=== PATIENT | male | born 1975 | race Caucasian/White ===

== ENCOUNTER 2020-05-15 20:15 | Emergency (ER) | payer BC, OTHER ==
[2020-05-15] MEDS ORDERED: Sodium Chloride 0.9% 1,000 ML IV ONE ×2 (20:29→21:04)
[2020-05-15] MEDS ORDERED: Acetaminophen 500 MG Tab PO ONE (20:29)
[2020-05-15] MEDS ORDERED: Sodium Chloride 0.9% 10 ML Syringe FLUSH PRN (21:04)
[2020-05-15 21:25] LABS: ANION GAP 17.1 mmol/L (5-15); CHLORIDE,CL 97 mmol/L (98-107); SODIUM,NA 136 mmol/L (136-145)
[2020-05-15] MEDS ORDERED: Albuterol 0.083% 2.5 MG/3 ML Neb Soln NEB ONE (21:50)
[2020-05-15] MEDS ORDERED: Iopamidol 755 Mg/ML 100 ML Bottle IV ONE (22:49)
[2020-05-15] MEDS ORDERED: Sodium Chloride 0.9% 100 ML IV SCH (23:00)
--- NOTE | 2020-05-15 23:39 | EDM.PDOC ---
ED HPI GENERAL MEDICAL PROBLEM - General Chief Complaint: Respiratory Problem Stated Complaint: COVID +, N/V Time Seen by Provider: 05/15/20 20:20 Source of Information: Reports: Patient History Limitations: Reports: No Limitations - History of Present Illness INITIAL COMMENTS - FREE TEXT/NARRATIVE: 45-year-old male presents to the emergency room with complaints of shortness of breath, chronic cough and not feeling well. He tested positive for Covid last Sunday on May 09. He works at the [employer] in the winter and his department had an outbreak of Covid. He reports his cough and shortness of breath have progressively gotten worse over the week. He denies significant chills but feels like he has been spiking some low-grade temps. He denies any significant chest pain. No abdominal pain. No muscular aches. Onset: Gradual Onset Date: 05/09/20 Duration: Day(s):, Getting Worse Location: Reports: Chest Quality: Reports: Ache Severity: Moderate Improves with: Reports: Rest Worsens with: Reports: Other (Coughing) Context: Reports: Sick Contact Associated Symptoms: Reports: Cough, cough w sputum, Fever/Chills, Nausea/Vomiting, Shortness of Breath. Denies: Chest Pain, Diaphoresis - Related Data Allergies Allergy/AdvReac Type Severity Reaction Status Date / Time No Known Allergies Allergy Verified 05/15/20 20:36 Home Meds: Home Meds . [No Known Home Meds] 04/03/13 [History] Past Medical History Endocrine/Metabolic History: Reports: Obesity/BMI 30+ - Infectious Disease History Infectious Disease History: Reports: Novel Coronavirus Social & Family History - Family History Family Medical History: No Pertinent Family History - Tobacco Use Tobacco Use Status *Q: Never Tobacco User Second Hand Smoke Exposure: No - Caffeine Use Caffeine Use: Reports: Energy Drinks, Soda - Recreational Drug Use Recreational Drug Use: No ED ROS GENERAL - Review of Systems Review Of Systems: See Below Constitutional: Reports: Fever, Weakness, Fatigue HEENT: Reports: No Symptoms Respiratory: Reports: Shortness of Breath, Cough Cardiovascular: Denies: Chest Pain, Blood Pressure Problem, Lightheadedness, Palpitations, Syncope Endocrine: Reports: No Symptoms GI/Abdominal: Reports: Nausea, Vomiting : Reports: No Symptoms Musculoskeletal: Reports: No Symptoms Skin: Denies: Cyanosis Neurological: Reports: No Symptoms Psychiatric: Reports: No Symptoms Hematologic/Lymphatic: Reports: No Symptoms Immunologic: Reports: No Symptoms ED EXAM, GENERAL - Physical Exam Exam: See Below Exam Limited By: No Limitations General Appearance: Alert, WD/WN, Mild Distress, Obese Eye Exam: Bilateral Eye: EOMI, PERRL Ears: Hearing Grossly Normal Nose: Normal Inspection Throat/Mouth: Normal Inspection, Normal Oropharynx, Normal Voice, No Airway Compromise Head: Atraumatic, Normocephalic Neck: Normal Inspection, Supple, Non-Tender, Full Range of Motion Respiratory/Chest: Decreased Breath Sounds (Noted throughout laterally). No: Wheezing, Retractions, Splinting Cardiovascular: Regular Rate, Rhythm, No Murmur Peripheral Pulses: 2+: Carotid (L), Carotid (R) GI/Abdominal: Normal Bowel Sounds, Soft, Non-Tender, No Organomegaly Back Exam: Normal Inspection Extremities: Normal Inspection Neurological: Alert, Oriented, No Motor/Sensory Deficits Psychiatric: Normal Affect, Normal Mood Skin Exam: Warm, Dry, Intact, Normal Color, No Rash. No: Cyanosis Lymphatic: No Adenopathy Course - Vital Signs Last Recorded V/S: Last Vital Signs Temp 99.6 F 05/15/20 22:15 Pulse 93 05/15/20 22:15 Resp 24 H 05/15/20 21:47 BP 111/62 05/15/20 22:15 Pulse Ox 91 L 05/15/20 22:15 - Orders/Labs/Meds Orders: Active Orders 24 hr Category Date Time Status Blood Pressure Mgt: Sepsis [RC] Q15MX2 Care 05/15/20 21:06 Active Overnight Pulse Oximetry [RC] Click to Edit Care 05/15/20 21:06 Active Oxygen Therapy, ED [RC] STAT Care 05/15/20 21:05 Active RT Aerosol Therapy [RC] ASDIRECTED Care 05/15/20 21:51 Active Ang Chest [CT] Stat Exams 05/15/20 22:00 Ordered Sodium Chloride 0.9% [Normal Saline] 100 ml Med 05/15/20 23:00 Active IV ASDIRECTED Sodium Chloride 0.9% [Saline Flush] Med 05/15/20 21:04 Active 10 ml FLUSH Q8HR PRN Isolation [COMM] Routine Oth 05/15/20 20:28 Ordered Pulse Oximetry Continuous Monitoring [OM.PC] Routine Oth 05/15/20 21:04 Ordered Saline Lock Insert [OM.PC] Stat Oth 05/15/20 21:04 Ordered Severe Sepsis Onset Time [OM.PC] Stat Ot 05/15/20 21:04 Ordered Medication Orders Sodium Chloride (Normal Saline) 100 mls @ 200 mls/hr IV ASDIRECTED JAIME Last Admin: 05/15/20 22:55 Dose: 200 mls/hr Documented by: ZION Sodium Chloride (Sodium Chloride 0.9% 10 Ml Syringe) 10 ml FLUSH Q8HR PRN PRN Reason: keep vein open Labs: Laboratory Tests 05/15/20 05/15/20 05/15/20 Range/Units 21:00 21:00 21:00 WBC 5.41 (5.00-10.00) 10^3/uL RBC 5.64 (4.50-6.00) 10^6/uL Hgb 15.1 (13.0-17.0) g/dL Hct 45.7 (40.0-52.0) % MCV 81.0 L (82.0-92.0) fL MCH 26.8 L (27.0-31.0) pg MCHC 33.0 (32.0-36.0) g/dL RDW 13.4 (11.5-14.5) % Plt Count 182 (150-400) 10^3/uL MPV 10.1 (7.4-10.4) fL Immature Gran % (Auto) 0.6 (0.0-5.0) % Neut % (Auto) 72.0 H (50.0-70.0) % Lymph % (Auto) 18.9 L (20.0-40.0) % [place] % (Auto) 8.1 H (2.0-8.0) % Eos % (Auto) 0.2 L (1.0-3.0) % Baso % (Auto) 0.2 (0.0-1.0) % Neut # (Auto) 3.90 (2.50-7.00) 10^3/uL Lymph # (Auto) 1.02 (1.00-4.00) 10^3/uL [place] # (Auto) 0.44 (0.10-0.80) 10^3/uL Eos # (Auto) 0.01 L (0.10-0.30) 10^3/uL Baso # (Auto) 0.01 (0.00-0.10) 10^3/uL Immature Gran # (Auto) 0.03 (0.00-0.50) 10^3/uL D-Dimer, Quantitative (<400) ng/mL Sodium 136 (136-145) mmol/L Potassium 3.7 (3.5-5.1) mmol/L Chloride 97 L (98-107) mmol/L Carbon Dioxide 25.6 (21.0-32.0) mmol/L Anion Gap 17.1 H (5-15) mmol/L BUN 10 (7-18) mg/dL Creatinine 1.11 (0.51-1.17) mg/dL Est Cr Clr Drug Dosing 91.39 mL/min Estimated GFR (MDRD) > 60 mL/min Glucose 116 (70-140) mg/dL Lactic Acid 1.5 (0.4-2.0) mmol/L Calcium 8.3 L (8.7-10.3) mg/dL Total Bilirubin 0.5 (0.2-1.0) mg/dL AST 144 H (15-37) U/L ALT 112 H (14-63) U/L Alkaline Phosphatase 80 (46-116) U/L C-Reactive Protein 7.1 H (0.0-0.9) mg/dL Total Protein 7.4 (6.4-8.2) g/dL Albumin 3.23 L (3.40-5.00) g/dL 05/15/20 Range/Units 21:00 WBC (5.00-10.00) 10^3/uL RBC (4.50-6.00) 10^6/uL Hgb (13.0-17.0) g/dL Hct (40.0-52.0) % MCV (82.0-92.0) fL MCH (27.0-31.0) pg MCHC (32.0-36.0) g/dL RDW (11.5-14.5) % Plt Count (150-400) 10^3/uL MPV (7.4-10.4) fL Immature Gran % (Auto) (0.0-5.0) % Neut % (Auto) (50.0-70.0) % Lymph % (Auto) (20.0-40.0) % [place] % (Auto) (2.0-8.0) % Eos % (Auto) (1.0-3.0) % Baso % (Auto) (0.0-1.0) % Neut # (Auto) (2.50-7.00) 10^3/uL Lymph # (Auto) (1.00-4.00) 10^3/uL [place] # (Auto) (0.10-0.80) 10^3/uL Eos # (Auto) (0.10-0.30) 10^3/uL Baso # (Auto) (0.00-0.10) 10^3/uL Immature Gran # (Auto) (0.00-0.50) 10^3/uL D-Dimer, Quantitative 521 H (<400) ng/mL Sodium (136-145) mmol/L Potassium (3.5-5.1) mmol/L Chloride (98-107) mmol/L Carbon Dioxide (21.0-32.0) mmol/L Anion Gap (5-15) mmol/L BUN (7-18) mg/dL Creatinine (0.51-1.17) mg/dL Est Cr Clr Drug Dosing mL/min Estimated GFR (MDRD) mL/min Glucose (70-140) mg/dL Lactic Acid (0.4-2.0) mmol/L Calcium (8.7-10.3) mg/dL Total Bilirubin (0.2-1.0) mg/dL AST (15-37) U/L ALT (14-63) U/L Alkaline Phosphatase (46-116) U/L C-Reactive Protein (0.0-0.9) mg/dL Total Protein (6.4-8.2) g/dL Albumin (3.40-5.00) g/dL Meds: Medications Generic Name Dose Route Start Last Admin Trade Name Freq PRN Reason Stop Dose Admin Sodium Chloride 100 mls @ 200 mls/hr 05/15/20 23:00 05/15/20 22:55 Normal Saline IV 200 mls/hr ASDIRECTED JAIME Administration Sodium Chloride 10 ml 05/15/20 21:04 Sodium Chloride 0.9% 10 Ml Syringe FLUSH Q8HR PRN keep vein open Discontinued Medications Generic Name Dose Route Start Last Admin Trade Name Hanane PRN Reason Stop Dose Admin Acetaminophen 1,000 mg 05/15/20 20:29 05/15/20 20:40 Acetaminophen 500 Mg Tab PO 05/15/20 20:30 1,000 mg ONETIME ONE Administration Albuterol 2.5 mg 05/15/20 21:50 05/15/20 22:07 Albuterol 0.083% 2.5 Mg/3 Ml Neb Soln NEB 05/15/20 21:51 2.5 mg ONETIME ONE Administration Sodium Chloride 1,000 mls @ 999 mls/hr 05/15/20 20:29 05/15/20 20:43 Normal Saline IV 05/15/20 21:29 999 mls/hr .BOLUS ONE Administration Iopamidol 100 ml 05/15/20 22:49 05/15/20 22:55 Iopamidol 755 Mg/Ml 100 Ml Bottle IV 05/15/20 22:50 100 ml ONETIME ONE Administration - Radiology Interpretation Free Text/Narrative:: CT angiogram with contrast Findings: Multifocal bilateral consolidation consistent with pneumonia. No significant mediastinal or hilar adenopathy. No free pleural fluid noted. No acute bony abnormalities. Thoracic aorta normal in caliber without dissection. Great vessel origins are patent. No coronary artery calcifications. No filling defects are noted to suggest pulmonary embolus. Main pulmonary artery normal in caliber. Impression: No evidence of pulmonary embolus. Multifocal bilateral consolidation consistent with pneumonia. - Re-Assessments/Exams Free Text/Narrative Re-Assessment/Exam: 05/15/20 23:57 Patient was given 1 L IV fluids, 1 g of Tylenol, albuterol nebulizer treatment. He feels mildly improved. His O2 saturation drops back down to 88% on room air. He maintains 90% on 2 L nasal cannula. Free Text/Narrative Re-Assessment/Exam: 05/16/20 00:22 Patient was given 6 mg IV dexamethasone 05/16/20 00:22 Oxygen was increased to 4 L nasal cannula Departure - Departure Time of Disposition: 00:45 Disposition: DC/Tfer to [facility] 02 Condition: Fair Clinical Impression: Lab test positive for detection of COVID-19 virus, Hypoxic, Tachypnea on examination, Febrile illness, acute - Discharge Information Forms: ED Department Discharge Sepsis Event Note (ED) - Evaluation Sepsis Screening Result: Possible Sepsis Risk - Focused Exam Vital Signs: Vital Signs Temp Temp Pulse Resp BP Pulse Ox Pulse Ox 05/15/20 22:15 99.6 F 93 111/62 91 L 05/15/20 22:07 92 L 05/15/20 21:47 88 24 H 124/77 90 L 05/15/20 21:39 101.7 F H 86 24 H 123/73 92 L 05/15/20 21:21 123/78 05/15/20 21:10 101.7 F H 05/15/20 21:06 118/73 05/15/20 21:05 94 L 05/15/20 20:40 99.2 F 05/15/20 20:30 88 24 H 117/72 95 05/15/20 20:22 94 L 05/15/20 20:20 99.2 F 91 28 H 124/75 88 L - My Orders Last 24 Hours: My Active Orders 05/15/20 20:28 Isolation [COMM] Routine 05/15/20 21:04 Sodium Chloride 0.9% [Saline Flush] 10 ml FLUSH Q8HR PRN Pulse Oximetry Continuous Monitoring [OM.PC] Routine Saline Lock Insert [OM.PC] Stat Severe Sepsis Onset Time [OM.PC] Stat 05/15/20 21:05 Oxygen Therapy, ED [RC] STAT 05/15/20 21:06 Blood Pressure Mgt: Sepsis [RC] Q15MX2 Overnight Pulse Oximetry [RC] Click to Edit 05/15/20 21:51 RT Aerosol Therapy [RC] ASDIRECTED 05/15/20 22:00 Ang Chest [CT] Stat 05/15/20 23:00 Sodium Chloride 0.9% [Normal Saline] 100 ml IV ASDIRECTED - Assessment/Plan Last 24 Hours: My Active Orders 05/15/20 20:28 Isolation [COMM] Routine 05/15/20 21:04 Sodium Chloride 0.9% [Saline Flush] 10 ml FLUSH Q8HR PRN Pulse Oximetry Continuous Monitoring [OM.PC] Routine Saline Lock Insert [OM.PC] Stat Severe Sepsis Onset Time [OM.PC] Stat 05/15/20 21:05 Oxygen Therapy, ED [RC] STAT 05/15/20 21:06 Blood Pressure Mgt: Sepsis [RC] Q15MX2 Overnight Pulse Oximetry [RC] Click to Edit 05/15/20 21:51 RT Aerosol Therapy [RC] ASDIRECTED 05/15/20 22:00 Ang Chest [CT] Stat 05/15/20 23:00 Sodium Chloride 0.9% [Normal Saline] 100 ml IV ASDIRECTED Assessment:: Covid positive with hypoxic and tachypneic requiring supplemental O2 saturation. Plan: 1. Patient was given 1 L IV fluids normal saline. 2. Patient was given albuterol nebulized treatment. 3. Patient was given 1000 mg Tylenol p.o. 4. Patient was placed on supplemental oxygen 2 L nasal cannula with O2 saturation at 90%. Patient was increased to 4 L O2 saturation at 94%. 5. Patient was given 6 mg IV dexamethasone.. 6. Consultation was discussed with hospitalist in [facility] [place], patient will be transferred to [place] Covid unit by ground ambulance.
[2020-05-16] MEDS ORDERED: Dexamethasone 10 MG/ML SDV IVPUSH ONE (00:21)
--- NOTE | 2020-05-16 09:00 | CT ---
[id number] CT/CTA Chest EXAM: CT ANGIOGRAM CHEST INDICATION: COVID POSITIVE COMPARISON: None. DISCUSSION: The pulmonary arteries are normal in appearance with no emboli identified. There are numerous areas of groundglass and consolidative density scattered throughout the lungs bilaterally. This is predominantly in a peripheral distribution.No pleural or pericardial effusion. The heart is enlarged. No mediastinal, hilar or axillary lymphadenopathy. Generalized hypodensity liver consistent with hepatic steatosis. IMPRESSION: 1. No evidence of acute pulmonary embolism. 2. Numerous areas of groundglass and consolidative densities scattered throughout the lungs bilaterally. Findings are likely infectious/inflammatory in nature as can be seen with atypical/viral pneumonia. This is consistent with history of COVID. Leeroy Chan DO 05/16/20 0859 Thank you for allowing us to participate in the care of your patient.
== END 2020-05-16 01:00 ==
LOC: KA.ED 20:15
DX: U07.1 COVID-19 (principal); R09.02 Hypoxemia; E66.9 Obesity, unspecified; Z68.36 Body mass index [BMI] 36.0-36.9, adult
CPT/HCPCS: 36415; 71275; 80053; 83605; 85025; 85379; 86140; 94640; 96374; 99284; 99285-25; A9270-GY; J1100; J7030; J7613-GY; Q9967